=== PATIENT | male | born 1965 | race Caucasian/White ===

== ENCOUNTER 2021-10-02 06:02 | Inpatient (IN) | payer OTHER ==
[~2021-10-02] VITALS: Ht 162.6 cm; Wt 73.5 kg
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
[2021-10-02 06:28] LABS: BILIRUBIN,URINE NEGATIVE (NEGATIVE); COLOR,URINE YELLOW (YELLOW); LEUKOCYTE ESTERASE ,URINE NEGATIVE (NEGATIVE); NITRITE, URINE NEGATIVE (NEGATIVE); PROTEIN,URINE TRACE mg/dl (NEGATIVE); UGLUCOSE NEGATIVE (NEGATIVE); UROBILINOGEN,URINE 0.2 EU/dL (0.2)
[2021-10-02] MEDS ORDERED: KETOROLAC TROMETHAMINE INJ 30 MG/ML VIAL IV ONE ×2 (06:30→09:00)
[2021-10-02] MEDS ORDERED: KETOROLAC TROMETHAMINE INJ 30 MG/ML VIAL ONE ×2 (06:30→09:29)
[2021-10-02 06:49] LABS: BASOPHILS % (AUTO) 0.3 % (0.0-2.0); EOSINOPHILS % (AUTO) 2.7 % (0.0-6.0); HEMATOCRIT 42 % (39-51); HEMOGLOBIN 13.8 g/dL (13.5-17.5); LYMPHOCYTES # (AUTO) 1.9 K/uL (0.8-4.8); MEAN CORPUSCULAR HGB CONC 33 g/dl (31.0-36.0); MEAN CORPUSCULAR VOLUME 86 fL (80-96); MONOCYTES # (AUTO) 1.1 K/uL (0.1-1.30); MONOCYTES % (AUTO) 10.6 % (2.0-12.0); NEUTROPHILS # (AUTO) 7.3 K/uL (1.8-8.9); NEUTROPHILS % (AUTO) 68.4 % (43.0-81.0); PLATELET COUNT (AUTO) 270 K/uL (150-450); RED BLOOD CELL COUNT(AUTO) 4.86 MIL/uL (4.5-6.0); WHITE BLOOD COUNT (AUTO) 10.6 K/uL (4.3-11.0)
--- NOTE | 2021-10-02 06:56 | NUR ---
PT TAKEN TO CT
[2021-10-02 07:21] LABS: ALBUMIN 3.2 g/dL (3.4-5.0); BILIRUBIN,DIRECT 0.2 mg/dL (0.0-0.2); BILIRUBIN,TOTAL 1.2 mg/dL (0.2-1.0); CALCIUM, SERUM 8.8 mg/dL (8.5-10.1); CREATININE 1.2 mg/dL (0.6-1.3); POTASSIUM 3.5 mmol/L (3.5-5.1); TOTAL PROTEIN, SERUM 6.6 g/dL (6.4-8.2)
[2021-10-02 07:31] LABS: BACTERIA,URINE Few /HPF (None Seen); SQUAMOUS EPITHELIAL CELL,UR Few /HPF (None Seen)
--- NOTE | 2021-10-02 08:39 | NUR ---
THE PATIENT IS ALERT AND ORIENTED X4. DENIES PAIN. IN ROOM AIR AND DENIES SOB. RESPIRATION REGULAR AND UNLABORED. WILL CONTINUE TO MONITOR THE PATIENT.
--- NOTE | 2021-10-02 08:57 | NUR ---
FAXED FACE SHEET TO DR. ISAAC
[2021-10-02] MEDS ORDERED: HYDROCODONE/APAP 5/325MG TABLET PO ONE (09:00)
[2021-10-02] MEDS ORDERED: HYDROCODONE/APAP 5/325MG TABLET ONE (09:28)
[2021-10-02] MEDS ORDERED: IOHEXOL 240MG/ML 50 ML IV ONE (10:01)
[2021-10-02] MEDS ORDERED: FENTANYL PF 100MCG/2ML AMPUL ONE (10:46)
--- NOTE | 2021-10-02 11:08 | NUR ---
ROOM 311-1
--- NOTE | 2021-10-02 11:08 | NUR ---
DR GONZALES ON THE PHONE WITH DR OLVERA
--- NOTE | 2021-10-02 11:14 | NUR ---
THE PATIENT IS IN OR.
[2021-10-02] MEDS ORDERED: IV NS 0.9% 1,000 ML IV PRN ×2 (11:30→11:45)
[2021-10-02] MEDS ORDERED: ACETAMINOPHEN 325 MG TABLET PO PRN ×2 (11:30→11:45)
[2021-10-02] MEDS ORDERED: hydrALAZINE HCL IV 20 MG VIAL IV PRN ×2 (11:30→11:45)
[2021-10-02] MEDS ORDERED: ONDANSETRON HCL/PF 4 MG/2 ML VIAL IVP PRN ×2 (11:30→11:45)
[2021-10-02] MEDS ORDERED: MORPHINE SULFATE INJ 2 MG/ML DISP.SYRIN IV PRN ×2 (11:30→11:45)
[2021-10-02] MEDS ORDERED: LABETALOL 20 MG/4 ML VIAL IV PRN ×2 (11:30→11:45)
[2021-10-02] MEDS ORDERED: CEFTRIAXONE 1 G in IV D5W 50 ML IV SCH ×2 (11:30→14:00)
--- NOTE | 2021-10-02 12:19 | NUR ---
RN MS NOTES RECEIVED PT FROM Samson ESTRADA RN VIA BED, PT IS AWAKE, ALERT AND ORIENTED, NO COMPLAINT OF PAIN OR ANY DISCOMFORT AT THIS TIME, RESPIRATIONS NORMAL, ASSISTED TO ROOM, ROOM SET UP ORIENTATION PROVIDED TO PT, VERBALIZED UNDERSTANDING, POST OP ORDERS RECEIVED, NOTED AND CARRIED OUT, WILL CONTINUE TO MONITOR.
[2021-10-02 12:20] VITALS: BP 119/77
[2021-10-02 12:35] VITALS: BP 122/66
[2021-10-02 13:35] VITALS: BP 123/72
[2021-10-02] MEDS ORDERED: HYDR-4209 PO (13:36)
--- NOTE | 2021-10-02 14:05 | NUR ---
RN MS NOTES PT IN BED, AWAKE, ALERT AND ORIENTED, DENIES PAIN, ABLE TO AMBULATE TO THE BATHROOM WITH STEADY GAIT, NOT IN DISTRESS, ON ROOM AIR, SEEN BY DR. HERBERT, DISCHARGE ORDER GIVEN, PT TO FOLLOW UP WITH DR. ISAAC WITHIN THE WEEK, DISCHARGE AND MEDICATION INSTRUCTION PROVIDED TO PT, VERBALIZED UNDERSTANDING, UNABLE TO DO FULL HEAD TO TOE ASSESSMENT PT WOULD LIKE TO GO HOME SOON POSSIBLE, VITAL SIGNS REMAIN STABLE, ASSISTED TO HOSPITAL LOBBY, PICKED UP BY , LEFT IN STABLE CONDITION.
[2021-10-03] MEDS ORDERED: ENOXAPARIN SODIUM 40 MG/0.4 ML DISP.SYRIN SQ SCH ×2 (09:00)
== END 2021-10-02 14:00 | disposition home or self-care (01) | DRG 661 ==
LOC: ER 06:07 → MED 12:32
PROVIDERS: ADMIT Internal Medicine; ATTEND Internal Medicine
PROC: 0T778DZ Dilation of Left Ureter with Intraluminal Device, Via Natural or Artificial Opening Endoscopic (ICD-10-PCS; principal; 2021-10-02)
DX: N13.2 Hydronephrosis with renal and ureteral calculous obstruction (principal); Z87.442 Personal history of urinary calculi; R74.8 Abnormal levels of other serum enzymes; Z20.822 Contact with and (suspected) exposure to COVID-19
CPT/HCPCS: 36415; 74018; 80048-TC; 80076-TC; 81001; 83690-TC; 84550-TC; 85025-TC; 87086-TC; A4217; C1769; C2617; C9803; G0378; J0690; J0696; J1100; J1885; J2405; J2704; J3010; J3490; J7030; J7060; Q9966